=== PATIENT | female | born 2000 | race Caucasian/White ===

== ENCOUNTER 2021-03-14 21:53 | Outpatient (CLI) | payer OTHER ==
[~2021-03-14] VITALS: Ht 152.4 cm; Wt 91.8 kg
--- NOTE | 2021-03-14 22:05 | NUR ---
PT TO UNIT AMBULATORY WITH COMPLAINTS OF CONTRACTIONS FOR THE LAST 2 HOURS. PT ORIENTED TO ROOM, CHANGED INTO GOWN, EFMX2 APPLIED, SVE PERFORMED, VS OBTAINED.
[2021-03-14 23:00] VITALS: BP 134/92; PULSE 78; TEMP 98.3
[2021-03-14 23:45] VITALS: BP 130/79; PULSE 70
--- NOTE | 2021-03-14 23:45 | NUR ---
PT SVE UNCHANGED SINCE ARRIVAL. MONITORING DC AT THIS TIME. DISCHARGE INSTRUCTIONS REVIEWED WITH PT AND SPOUSE, UNDERSTANDING VERBALIZED. PT TO CHANGED INTO HER OWN CLOTHES.
[2021-03-14] MEDS ORDERED: PRENATAL PO (23:51)
--- NOTE | 2021-03-14 23:55 | NUR ---
PT OFF UNIT AMBULATORY WITH SPOUSE FOR HOME.
== END 2021-03-14 23:55 | disposition home or self-care (01) ==
LOC: LDRO 21:53 → LDR 22:05 → LDRO 23:55
DX: O62.9 Abnormality of forces of labor, unspecified (principal); Z3A.39 39 weeks gestation of pregnancy
CPT/HCPCS: OP

== ENCOUNTER 2021-03-16 16:14 | Outpatient (CLI) | payer OTHER ==
[2021-03-16] VITALS (7 sets, daily range): BP systolic 123–147; BP diastolic 81–94; PULSE 74–95; TEMP 98.4
[~2021-03-16] VITALS: Ht 152.4 cm; Wt 90.5 kg
[~2021-03-16 16:14] MED LIST changes: -AMOXICILLIN 50500 MG PO; -IBU600 MG PO
--- NOTE | 2021-03-16 16:20 | NUR ---
1620- 40.1 G1L0 here from clinic for serial bp and labs. Ambulatory to LDR6 with significant other. Reports normal movement, and irregular contractions. Denies any LOF or VB. Changes into clean gown. 1622- EFM explained and placed. VS obtained. Assessment completed. 1700- Dr. Salvador updated on pt. See physician notification.
[2021-03-16] MEDS ORDERED: AMOXICILLIN 50500 MG PO (16:38)
[2021-03-16 16:57] LABS: COLLECTION METHOD CLEAN CATCH
[2021-03-16 17:03] LABS: BASO % 0.3 % (0.0-2.0); EOS % 0.1 % (0-4.0); GRAN # 10.3 (1.4-6.5); GRAN % 80.1 % (42.2-75.2); HEMATOCRIT 38.8 % (37.0-47.0); HEMOGLOBIN 13.3 g/dl (12.5-16.0); LYMPH # 1.7 (1.2-3.4); LYMPH % 13.4 % (20.0-51.0); MEAN CELL VOLUME 91 fl (80.0-100.0); MEAN CORPUSCULAR HEMOGLOBIN 31 pg (27.0-31.0); MEAN CORPUSCULAR HGB CONC 34 g/dl (33.0-37.0); MEAN PLATELET VOLUME 10.4 fl (7.4-10.4); MONO # 0.7 (0.1-0.6); MONO % 5.6 % (1.7-9.3); PLATELET COUNT 304 K/mm3 (130-400); RED BLOOD COUNT 4.27 M/mm3 (4.10-5.30); REDCELL DISTRIBUTION WIDTH-CV 14.2 % (11.5-14.5)
[2021-03-16 17:05] LABS: MUCOUS Present /lpf; PH 6 (5-8); SQUAMOUS EPITHELIAL 0-2 /hpf; URINE APPEARANCE Hazy; URINE BACTERIA Rare /hpf; URINE BILIRUBIN Negative (NEGATIVE); URINE BLOOD 2+ (NEGATIVE); URINE COLOR Yellow; URINE GLUCOSE Negative (NEGATIVE); URINE KETONE 1+ (NEGATIVE); URINE LEUKOCYTE ESTERASE Trace (NEGATIVE); URINE NITRATE Negative (NEGATIVE); URINE PROTEIN(semi-quant) Negative (NEGATIVE); URINE RBC 0-2 /hpf; URINE UROBILINOGEN Negative (NEGATIVE)
[2021-03-16 17:16] LABS: ALBUMIN 2.9 gm/dL (3.5-5.0); ALKALINE PHOSPHATASE 202 U/L (0-750); ANION GAP 14 mmol/L; AST,SGOT 15 U/L (5-34); BILIRUBIN,TOTAL 0.3 mg/dL (0.2-1.2); BLOOD UREA NITROGEN 9 mg/dL (7-19); CALCIUM 9.3 mg/dL (8.4-10.2); CHLORIDE 110 mmol/L (98-107); CREATININE, serum 0.68 mg/dL (0.57-1.11); GLUCOSE 78 mg/dL (70-99); POTASSIUM 3.8 mmol/L (3.5-4.5); SODIUM 138 mmol/L (136-145)
[2021-03-16 17:18] LABS: ALANINE AMINOTRANSFERASE < 6 U/L (0-55)
[2021-03-16 17:20] LABS: CARBON DIOXIDE 14 mEq/L (22-29)
--- NOTE | 2021-03-16 18:20 | NUR ---
Discharge instructions reviewed. Patient ambulatory off unit to private vehicle.
== END 2021-03-16 18:20 | disposition home or self-care (01) ==
LOC: LDRO 16:14 → LDR 16:20 → LDRO 18:20
PROVIDERS: Obstetrics & Gynecology
DX: O13.3 Gestational [pregnancy-induced] hypertension without significant proteinuria, third trimester (principal); O62.9 Abnormality of forces of labor, unspecified; Z3A.40 40 weeks gestation of pregnancy
CPT/HCPCS: OP

== ENCOUNTER → 2021-03-16 | Outpatient (CLI) | payer OTHER ==
[~2021-03-16] VITALS: Ht 152.4 cm; Wt 91.8 kg
[~2021-03-16] MED LIST: AMOXICILLIN 50500 MG PO; IBU600 MG PO; PRENATAL PO
[2021-03-16 04:50] VITALS: BP 137/83; PULSE 65; TEMP 98.6
--- NOTE | 2021-03-16 04:50 | NUR ---
0430 G1 at 40.1 weeks gestation to LDR5 with c/o contractions. She states that she has been having irregular contractions since yesterday but they got stronger and closer together around 0100. She reports good movement. She denies leaking of fluid or vaginal bleeding. EFMs explained and applied. FHR 130bpm and reactive. CTX q5-6 minutes per toco. VSS. SVE /-2. Plan of care reviewed with patient and boyfriend.
[2021-03-16 05:30] VITALS: BP 124/86; PULSE 72
--- NOTE | 2021-03-16 05:40 | NUR ---
TUCKER with no change. Dr. Lao remains on unit and updated. Orders to discharge home received. Discharge instrutions reviewed with patient.
== END ==
LOC: LDRO 04:12
DX: O62.9 Abnormality of forces of labor, unspecified (principal); Z3A.40 40 weeks gestation of pregnancy

== ENCOUNTER 2021-03-17 06:18 | Inpatient (IN) | payer OTHER ==
[2021-03-17] VITALS (37 sets, daily range): BP systolic 110–146; BP diastolic 56–94; PULSE 55–128; TEMP 97.9–99
[~2021-03-17] VITALS: Ht 152.4 cm; Wt 91.8 kg
[~2021-03-17 06:18] MED LIST changes: +AMOXICILLIN 50500 MG PO
--- NOTE | 2021-03-17 06:30 | NUR ---
Pt ambulatory onto unit with significant other. Changed into gown. FHR monitor/TOCO applied. Pt denies vaginal bleeding, leaking of fluid or decreased movement. 0645 IV started per RN in left wrist. Pt tolerates well. Plan of care discussed. Pt verbalizes understanding.
[2021-03-17 07:24] LABS: BASO % 0.2 % (0.0-2.0); GRAN # 10.3 (1.4-6.5); GRAN % 80.8 % (42.2-75.2); HEMATOCRIT 38.8 % (37.0-47.0); HEMOGLOBIN 13.1 g/dl (12.5-16.0); LYMPH # 1.7 (1.2-3.4); LYMPH % 13.2 % (20.0-51.0); MEAN CELL VOLUME 91 fl (80.0-100.0); MEAN CORPUSCULAR HEMOGLOBIN 31 pg (27.0-31.0); MEAN CORPUSCULAR HGB CONC 34 g/dl (33.0-37.0); MEAN PLATELET VOLUME 10.3 fl (7.4-10.4); MONO # 0.7 (0.1-0.6); MONO % 5.2 % (1.7-9.3); PLATELET COUNT 311 K/mm3 (130-400); RED BLOOD COUNT 4.26 M/mm3 (4.10-5.30); REDCELL DISTRIBUTION WIDTH-CV 14.3 % (11.5-14.5)
--- NOTE | 2021-03-17 08:49 | NUR ---
Difficulty tracing FHR due to maternal position during epidural placement.
--- NOTE | 2021-03-17 09:45 | NUR ---
Variable and early decels noted.
--- NOTE | 2021-03-17 11:30 | NUR ---
Variable and early decels noted.
--- NOTE | 2021-03-17 12:15 | NUR ---
FHR decel noted. Ctx tracing intermittently. Difficult to determine FHR decel onset. Rn at bedside adjusting toco. Will continue to monitor.
--- NOTE | 2021-03-17 12:25 | NUR ---
RN AT BEDSIDE DOING LATERAL HIP RELEASE.
--- NOTE | 2021-03-17 12:27 | NUR ---
RN AT BEDSIDE DOING SIDE LYING HIP RELEASE. PT TOLERATING WELL.
--- NOTE | 2021-03-17 12:30 | NUR ---
1230- Intermittent late and variable decels. Pt repositioned.
--- NOTE | 2021-03-17 13:00 | NUR ---
Variable and early decels noted.
--- NOTE | 2021-03-17 14:46 | NUR ---
DIFFICULTY TRACING FHR DUE TO MOTHER PUSHING. 1408 VIABLE INFANT DELIVERED. 1411 PLACENTA DELIVERED.
--- NOTE | 2021-03-17 16:11 | NUR ---
1314 SVE per this RN C/+2. 1337 Pt starts pushing. This RN at bedside. 1359 at bedside for delivery. 1408 Spontaneous vaginal delivery of viable female infant. [place] to mothers chest. Stimulated by nursery RN. 1409 Cord clamped x2. Cut by FOB. 1411 Spontaneous and intact delivery of placenta. Pitocin at 333ml/hr per protocol. 1st degree perineal lac repaired by Dr. Salvador. Fifi care provided. Ice pack to perineum. See Dr dictation/anethesia record and nurses notes.
[2021-03-18 07:54] LABS: HEMOGLOBIN 11.9 g/dl (12.5-16.0)
[2021-03-18 07:55] LABS: HEMATOCRIT 36.4 % (37.0-47.0)
[2021-03-18 08:15] VITALS: BP 144/87; PULSE 92; TEMP 98.2
[2021-03-18] MEDS ORDERED: IBU600 MG PO (08:31)
[2021-03-18 12:00] VITALS: BP 132/81; PULSE 85; TEMP 98.1
[2021-03-18 16:55] VITALS: BP 134/77; PULSE 84; TEMP 98.1
[2021-03-18 20:00] VITALS: BP 132/79; PULSE 77; TEMP 97.8
[2021-03-19 09:00] VITALS: BP 136/78; PULSE 76; TEMP 98.1
== END 2021-03-19 11:40 | disposition home or self-care (01) | DRG 805 ==
LOC: LDR 06:18 → OB 17:33
PROVIDERS: ADMIT Obstetrics & Gynecology
PROC: 10E0XZZ Delivery of Products of Conception, External Approach (ICD-10-PCS; principal; 2021-03-17)
PROC: 0HQ9XZZ Repair Perineum Skin, External Approach (ICD-10-PCS; 2021-03-17)
PROC: 3E033VJ Introduction of Other Hormone into Peripheral Vein, Percutaneous Approach (ICD-10-PCS; 2021-03-17)
DX: O41.03X0 Oligohydramnios, third trimester, not applicable or unspecified (principal); O75.3 Other infection during labor; Z37.0 Single live birth; O48.0 Post-term pregnancy; Z3A.40 40 weeks gestation of pregnancy; O70.0 First degree perineal laceration during delivery
CPT/HCPCS: J2590; J7120